=== PATIENT | male | born 1990 | race Caucasian/White ===

== ENCOUNTER 2019-06-06 13:52 | Emergency (ER) | payer MEDICAID, OTHER ==
[~2019-06-06] VITALS: Ht 177.8 cm; Wt 77.1 kg
--- NOTE | 2019-06-06 14:02 | NUR ---
patient was seen by md. DEGROOT and follow up instructions given and explained to patient who states he understands all instructions.
[2019-06-06 14:09] VITALS: BP 114/76
== END 2019-06-06 14:10 | disposition home or self-care (01) ==
LOC: ER 13:52
DX: F41.9 Anxiety disorder, unspecified (principal); F31.9 Bipolar disorder, unspecified; Z76.0 Encounter for issue of repeat prescription; Z88.8 Allergy status to other drugs, medicaments and biological substances
CPT/HCPCS: A4663